=== PATIENT | male | born 1955 | race Caucasian/White ===

== ENCOUNTER 2017-09-22 20:21 | Emergency (ER) | payer MEDICARE, MEDICAID ==
[2017-09-22] MEDS ORDERED: Bacitracin pkt 1 gm Pkt TP ONE (21:37)
[2017-09-22] MEDS ORDERED: Bacitracin pkt 1 gm Pkt TP STA (21:46)
--- NOTE | 2017-09-22 21:54 | ED Physician Chart ---
ED Chief Complaint/HPI - Patient Information Date Seen:: 09/22/17 Time Seen:: 21:00 Chief Complaint:: Left eyebrow laceration History of Present Illness:: 62 yo male who is a resident in a [facility] facility, had a fall in the bathroom 2 hours prior. He was found to have a laceration on the left eyebrow by a direct care worker. No witnessed loss of consciousness. He was trying to get up by himself. He has mild mental retardation, cerebral palsy and seizure disorder on Depakote. He had unsteady gait and was able to ambulate with cane for a short distance. He relied on wheelchair for long distance travelling. Allergies:: Allergies Allergy/AdvReac Type Severity Reaction Status Date / Time No Known Allergies Allergy Verified 09/22/17 21:29 Vitals:: Vital Signs - 8 hr 09/22/17 20:35 Temp 97.6 F HR 92 RR 18 BP 99/56 O2 Sat % 96 ED Review of Systems - Review of Systems General/Constitutional: No fever Skin: Skin lesions Head: Headache Eyes: Other (Right eyebrow ) ENT: No earache Neck: No neck pain Cardio Vascular: No chest pain Pulmonary: No SOB GI: No nausea, No vomiting Musculoskeletal: No bone or joint pain, Other (unsteady gait) Psychiatric: Depression, Anxiety Neurological: Weakness ED Past Medical History - Past Medical History Past Medical History: Seizures, Other (Kyphosis, cerebral palsy) Social History: Non Smoker, No Alcohol, No Drug Use Psychiatricy History: Depression, Other (mild mental retardation, anxiety) Family Medical History - Family Member Mother History Unknown: Yes ED Physical Exam - Physical Examination General/Constitutional: Awake, Alert Other Head comments:: Left eyebrow laceration 3cm in length, 0.5cm in depth ENMT: Nasal exam nl Neck: No nuchal rigidity Respiratory: No Wheeze/Rhonchi/Rales Cardio Vascular: RRR, No murmur, gallop, rubs, NL S1 S2 GI: No tenderness/rebounding/guarding Other Extremities comments:: Weakness with unsteady gait Other Neuro/Psych comments:: Neck spasm and kyphosis in T, L-spine ED Labs/Radiology/EKG Results - Radiology Results Results: CT head without contrast: No acute hemorrhage, mass effect or fracture. Chronic encephalomalacia right frontal lobe. ED Assessment - Assessment General Assessment: Left eyebrow laceration Assessment/Comments:: Laceration repair Tdap Rocephin 1g IM CT head without contrast Location:: Left eyebrow Laceration Type:: Simple Wound Length: 3 cm Prep/Irrigation:: NS, hydrogen peroxide, betadine were used to clean the wound Comments: 6.0 prlene was used to close the wound with 6 simple interrupted sutures. Bacitracin was applied. Patient tolerated the procedure well ED Septic Shock - . Is Septic Shock (SBP<90, OR Lactate>4 mmol\L) present?: No - <6hrs of presentation: Vital Signs: Vital Signs - 8 hr 09/22/17 20:35 Temp 97.6 F HR 92 RR 18 BP 99/56 O2 Sat % 96 ED Reassessment (Disposition) - Reassessment Reassessment Condition:: Improved - Patient Disposition Discharge/Transfer:: Residential/Boarding Care ED Discharge Plan - Patient Disposition Admit/Discharge/Transfer: PT DISCHARGED HOME Instructions: Laceration Care, Adult, [id number] Additional Instructions: FOLLOW UP WITH PRIMARY MEDICAL DOCTOR IN [facility] SUTURE CAN BE REMOVED 7-10 DAYS KEEP WOUND CLEAN AT ALL TIMES
--- NOTE | 2017-09-23 08:12 | Diagnostic Imaging Report ---
Head CT without intravenous contrast Indication: Trauma Comparison: None Technique: Axial images were obtained from the vertex to the skull base without IV contrast. Coronal reconstructions were made. Total DLP: [id number], [id number] FINDINGS: Images of the brain obtained without contrast demonstrate bowel encephalomalacia and gyriform calcifications throughout the right frontal lobe probably due to old vascular insult. There is this limits sensitivity for hemorrhage in this region, however, no gross hemorrhage is identified. Atrophy is noted. The ventricles and basal cisterns are patent. There is deformity of the right calvarium with likely previous right frontal and temporal old craniotomy. There is mild left periorbital soft tissue swelling pocket of gas seen superiorly. There may have been an old left orbital floor fracture. No acute fracture identified. There is minimal mucosal thickening of paranasal sinuses. IMPRESSION: Diffuse gyriform calcifications and probable encephalomalacia throughout the right frontal lobe. This may have been due to an old vascular insult. Please correlate with clinical history old exams. This limits assessment for hemorrhage in this region, however, no gross hemorrhage identified Atrophy. Mild left periorbital soft tissue swelling with small pocket of gas adjacent to the roof of the left orbit. No acute fracture identified in this region. There may have been a remote left orbital floor fracture.
== END 2017-09-22 23:05 | disposition home or self-care (01) ==
LOC: ER 20:21
DX: S01.112A Laceration without foreign body of left eyelid and periocular area, initial encounter (principal); W19.XXXA Unspecified fall, initial encounter; Y93.89 Activity, other specified; Y92.091 Bathroom in other non-institutional residence as the place of occurrence of the external cause; Y99.8 Other external cause status
CPT/HCPCS: 99284; 96372; 12013; 70450; 90715; J0696; Z7502; Z7610